=== PATIENT | female | born 1985 | race Caucasian/White ===

== ENCOUNTER → 2016-05-12 | Outpatient (CLI) | payer BC | END | disposition home or self-care (01) | LOC: PTH.S 06:53 | DX: N97.9 Female infertility, unspecified (principal) ==

== ENCOUNTER → 2016-05-15 | Outpatient (CLI) | payer BC | END | disposition home or self-care (01) | LOC: PTH.S 07:14 | DX: N97.9 Female infertility, unspecified (principal) ==

== ENCOUNTER → 2016-07-10 | Outpatient (CLI) | payer BC | END | disposition home or self-care (01) | LOC: PTH.S 07:12 | DX: N97.9 Female infertility, unspecified (principal) ==